=== PATIENT | male | born 2000 | race Caucasian/White ===

== ENCOUNTER 2024-03-23 13:21 | Emergency (ER) | payer MEDICAID ==
[~2024-03-23] VITALS: Ht 193 cm; Wt 90.7 kg
[2024-03-23 13:41] VITALS: TEMP 98.3
[2024-03-23] MEDS ORDERED: LIDOCAINE 1% INJ 50 ML MDV IJ ONE (13:53)
[2024-03-23] MEDS ORDERED: SULF1TAB48 PO (14:46)
[2024-03-23] MEDS ORDERED: IBUP-1955 PO (14:46)
[2024-03-23 15:50] VITALS: BP 115/78; O2SAT 98
== END 2024-03-23 15:20 | disposition home or self-care (01) ==
LOC: ER 13:25
DX: L02.611 Cutaneous abscess of right foot (principal); Z59.00 Homelessness unspecified
CPT/HCPCS: 99283; 10060; J3490; A6403

== ENCOUNTER 2024-03-26 10:50 | Emergency (ER) | payer MEDICAID ==
[~2024-03-26] VITALS: Ht 188 cm; Wt 95.3 kg
[~2024-03-26 10:50] MED LIST: IBUP-1955 PO; SULF1TAB48 PO
[2024-03-26 10:59] VITALS: BP 114/60; TEMP 98.4; O2SAT 99
[2024-03-26] MEDS ORDERED: CEPH500T PO (11:07)
== END 2024-03-26 11:22 | disposition home or self-care (01) ==
LOC: ER 10:59
DX: L03.115 Cellulitis of right lower limb (principal); Z59.00 Homelessness unspecified

== ENCOUNTER 2024-09-14 23:24 | Emergency (ER) | payer SELFPAY ==
[~2024-09-14] VITALS: Ht 177.8 cm; Wt 68.0 kg
[~2024-09-14 23:24] MED LIST changes: +CEPH500T PO
[2024-09-14] MEDS ORDERED: IBUP-1490 PO (23:45)
[2024-09-14] MEDS ORDERED: AMOX-430 PO (23:45)
[2024-09-14] MEDS ORDERED: IBUPROFEN 600 MG TABLET ONE (23:53)
[2024-09-14] MEDS ORDERED: AMOX/CLAVULANATE 875 MG TABLET ONE (23:54)
[2024-09-14] MEDS ORDERED: TDAP [DIPH/PERTUSSIS/TET] 0.5 ML VIAL IM ONE (23:54)
[2024-09-14] MEDS: TDAP [DIPH/PERTUSSIS/TET] 0.5 ML VIAL IM ONE (23:56)
[2024-09-14] MEDS: AMOX/CLAVULANATE 875 MG TABLET PO ONE (23:56)
[2024-09-14] MEDS: IBUPROFEN 600 MG TABLET PO ONE (23:56)
[2024-09-15 00:08] VITALS: BP 132/80; TEMP 98.9; O2SAT 98
== END 2024-09-15 00:09 | disposition home or self-care (01) ==
LOC: ER 23:26
DX: S60.812A Abrasion of left wrist, initial encounter (principal); Z59.00 Homelessness unspecified; Z79.899 Other long term (current) drug therapy; Y04.1XXA Assault by human bite, initial encounter; Y93.89 Activity, other specified; Y92.89 Other specified places as the place of occurrence of the external cause; Y99.8 Other external cause status
CPT/HCPCS: 90715